=== PATIENT | female | born 1955 | race Caucasian/White ===

== ENCOUNTER 2016-11-03 09:46 | Emergency (ER) ==
[2016-11-03 10:15] VITALS: BMI 36.2
[2016-11-03 10:50] LABS: BASOPHILS % (AUTO) 0.5 % (0.0-3.0); EOSINOPHILS # (AUTO) 0.2 K/ul (0.0-0.7); EOSINOPHILS % (AUTO) 2.6 % (0.0-7.0); HEMATOCRIT 42.4 % (37.0-47.0); HEMOGLOBIN 14.4 g/dl (12.0-16.0); IMMATURE GRANULOCYTE % (AUTO) 0.5 % (0.0-5.0); LYMPHOCYTES # (AUTO) 1.6 K/uL (0.60-3.4); LYMPHOCYTES % (AUTO) 20.3 (10.0-50.0); MEAN CORPUSCULAR HEMOGLOBIN 26.4 pg (27.0-31.0); MEAN CORPUSCULAR VOLUME 77.8 fl (81.0-99.0); MONOCYTES # (AUTO) 0.5 K/uL (0.4-2.0); MONOCYTES % (AUTO) 6.1 (0-10); NEUTROPHILS # (AUTO) 5.4 K/ul (2.0-6.9); PLATELET COUNT 142 10^3/uL (140-440); RED BLOOD COUNT 5.45 10^6/ul (4.20-5.40); WHITE BLOOD COUNT 7.73 K/ul (4.6-10.2)
--- NOTE | 2016-11-03 10:57 | CT ---
EXAM: CT right knee without contrast HISTORY: Diabetic with sudden [id number] pain reduced range of motion COMPARISON: None TECHNIQUE: CT right knee performed without contrast. Coronal and sagittal reformatted images obtai gabriella. FINDINGS: No fracture or dislocation. No cortical destruction to suggest osteomyelitis. Small trico mpartmental osteophytes. Mild narrowing patellofemoral compartment. Moderate narrowing patellofemor al compartment laterally. Mild patellar tendon enthesopathy. Small joint effusion. There is fluid a nd inflammation in the subcutaneous tissues anteriorly. A few foci of increased attenuation in this region may represent blood product. Questionable area of focal developing fluid collection measuri ng 2.1 x 1.4 cm image 42 sagittal. No soft tissue gas. Chondrocalcinosis medial compartment. Ather osclerosis IMPRESSION: 1. No fracture or dislocation. No cortical destruction to suggest osteomyelitis. 2. Fluid and stranding in the subcutaneous tissues anteriorly with possible areas of blood product. Findings may represent cellulitis and/or contusion. Clinical correlation is recommended. Additio rene, there is a possible developing 2.1 cm fluid collection in this region that could represent de veloping abscess or hematoma, poorly evaluated without contrast 3. Small joint effusion. 4. Tricompartmental osteoarthritis, moderate patellofemoral compartment. Chondrocalcinosis.
--- NOTE | 2016-11-03 11:02 | CT ---
EXAM: CT right foot without intravenous contrast 11/03/2016. Sagittal and coronal reformatted imag es obtained. HISTORY: Charcoal arthropathy. Chronic ulceration COMPARISON: None. FINDINGS: Destructive arthropathy is present within the midfoot. There is a reported clinical hist ory of Charcot arthropathy. There is increased bone density with destruction of the articular carti rachel. Multifocal bony deformity with areas of loose body. Multifocal joint subluxation. These fin dings are consistent with Charcot arthropathy. Edematous appearance is present throughout the mid foot. Fluid within the midfoot could be due to j oint effusion. Septic joint not excluded. There is induration of the soft tissues along the undersurface of the foot. This has likely due to extensive edema. No definitive drainable abscess identified. This process extends from this skin s urface superiorly to the undersurface of the cuboid. This can be seen on axial series image 78 and sagittal series image 25. This could represent cellulitis. Infectious process with associated oste omyelitis is not excluded. IMPRESSION: 1. 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 2. The destructive findings of Charcot arthropathy could obscure and mimic the findings of osteomyel itis. Osteomyelitis cannot be excluded on the current study. Fluid extends throughout the midfoot likely due to joint effusion. Septic joint also not excluded. 3. Induration of the soft tissues along the surface of the foot most severe inferior to the cuboid. No definitive drainable abscess. Further evaluation should be obtained as clinically indicated.
[2016-11-03 11:09] LABS: ALBUMIN 3.8 g/dL (3.4-5.0); ALBUMIN/GLOBULIN RATIO 1.12; ANION GAP 14.1; BILIRUBIN,TOTAL 0.97 mg/dL (0.00-1.20); BUN/CREATININE RATIO 16.84; CALCIUM 9.3 mg/dL (8.2-10.2); CREATININE 0.95 mg/dL (0.60-1.30); POTASSIUM 4.1 mmol/L (3.5-5.10); TOTAL PROTEIN 7.2 g/dL (6.4-8.2)
[2016-11-03 13:05] VITALS: BP 143/79; TEMP 97.1
[2016-11-03] MEDS ORDERED: ROCEPHIN 2 GM in SODIUM CHLORIDE 100 ML IV STA (13:11)
--- NOTE | 2016-11-03 13:16 | ED.PDOC ---
General ED Provider: Dr. ARNEL WILKINS Chief Complaint: Knee Pain/Injury Stated Complaint: foot, and knee pain right sided Time Seen by Physician: 10:00 (PMD SPOKE AND SAW PT IN THE ED ) Mode of Arrival: Walk-In Information Source: Patient Exam Limitations: No limitations Primary Care Provider: SARA ROSS Nursing and Triage Documentation Reviewed and Agree: Yes Musculoskeletal Complaint Exam - Ankle/Foot Complaint/Exam Location of Injury: Reports: Right, Foot Mechanism of Injury: Reports: No known trauma (HISTORY OF CHARCOT ARTHROPATHY) Onset/Duration: CHRONIC ACUTELY WORSE SEE PHOTOS Symptoms Are: Reports: Still present Onset of Pain: Reports: Immediate Initial Severity: Moderate Current Severity: Moderate Character: Reports: Aching Alleviating: Reports: Rest, Position Aggravating: Reports: Movement, Weight bearing Able to Bear Weight: Yes Associated Signs and Symptoms: Reports: Swelling, Redness (SEE PHOTOS) Review of Systems - Review Of Systems Constitutional: Reports: No symptoms Eyes: Reports: No symptoms Ears, Nose, Mouth, Throat: Reports: No symptoms Respiratory: Reports: No symptoms Cardiac: Reports: No symptoms GI: Reports: No symptoms : Reports: No symptoms Musculoskeletal: Reports: Joint pain (KNEE PAIN FOOT PAIN) Skin: Reports: No symptoms Neurological: Reports: No symptoms Endocrine: Reports: No symptoms Hematologic/Lymphatic: Reports: No symptoms All Other Systems: Reviewed and Negative Past Medical History - Past Medical History Previously Healthy: No Endocrine: Reports: DM 2, Dyslipidemia Cardiovascular: Reports: Hypertension Respiratory: Reports: None Hematological: Reports: None Gastrointestinal: Reports: None Genitourinary: Reports: None Neuro/Psych: Reports: None Musculoskeletal: Reports: None Cancer: Reports: None Last Menstrual Period: N/A - Surgical History General Surgical History: Reports: Unknown - Family History Family History: Reports: Unknown - Social History Smoking Status: Former smoker Hx Substance Use: No Alcohol Screening: None - Immunizations Tetanus Shot up to Date: Yes Physical Exam - Physical Exam Appearance: Well-appearing, No pain distress, Well-nourished Eyes: MARIA L, EOMI, Conjunctiva clear ENT: Ears normal, Nose normal, Oropharynx normal Respiratory: Airway patent, Breath sounds clear, Breath sounds equal, Respirations nonlabored Cardiovascular: RRR, Pulses normal, No rub, No murmur GI/: Soft, Nontender, No masses, Bowel sounds normal, No Organomegaly Musculoskeletal: Normal strength, No edema, No calf tenderness, Limited ROM ( RIGHT FOOT SEE SUBMITTED PHOTOS, RIGHT KNEE TENDER AND SOWELLEN ) Skin: Warm, Dry, Normal color Neurological: Sensation intact, Motor intact, Reflexes intact, Cranial nerves intact, Alert, Oriented Psychiatric: Affect appropriate, Mood appropriate Physician Notification - Case Discussed Physician Notified: SAYDA Time of Notification: 13:18 (TRANSFER NOW) Critical Care Note - Critical Care Note Total Time (mins): 0 Course - Course Hematology/Chemistry: 11/03/16 10:47 11/03/16 10:47 Orders, Labs, Meds: Lab Review 11/03/16 10:47 WBC 7.73 RBC 5.45 H Hgb 14.4 Hct 42.4 MCV 77.8 L MCH 26.4 L MCHC 34.0 RDW Coeff of Ferny 13.1 Plt Count 142 Immature Gran % (Auto) 0.5 Neut % (Auto) 70.0 Lymph % (Auto) 20.3 [place] % (Auto) 6.1 Eos % (Auto) 2.6 Baso % (Auto) 0.5 Immature Gran # (Auto) 0.0 Neut # 5.4 Lymph # 1.6 [place] # 0.5 Eos # 0.2 Baso # 0.0 Sodium 136 Potassium 4.1 Chloride 100 Carbon Dioxide 26 Anion Gap 14.1 BUN 16 Creatinine 0.95 Estimated GFR (MDRD) 60.00 BUN/Creatinine Ratio 16.84 Glucose 306 H Lactic Acid 24.1 H Calcium 9.3 Total Bilirubin 0.97 AST 25 ALT 41 Alkaline Phosphatase 102 Total Protein 7.2 Albumin 3.8 Globulin 3.4 Albumin/Globulin Ratio 1.12 Orders Category Date Time Status ED IV/MEDIPORT/POWERPORT .ONCE EMERGENCY 11/03/16 13:11 Ordered BLOOD CULTURE Stat LAB 11/03/16 10:47 Received CBC W/ AUTO DIFF Stat LAB 11/03/16 10:47 Completed COMPREHENSIVE METABOLIC PANEL Stat LAB 11/03/16 10:47 Completed LACTIC ACID Stat LAB 11/03/16 10:47 Completed 0.9 % Sodium Chloride [Saline Flush] MEDS 11/03/16 13:11 Ordered 1 syr IVF PRN PRN Ceftriaxone Sodium [Rocephin] 2 gm MEDS 11/03/16 13:11 Ordered 0.9 % Sodium Chloride [Sodium Chloride] [address] FOOT RIGHT WITHOUT CONTRAST Stat RADS 11/03/16 10:[address] KNEE RIGHT WITHOUT CONTRAST Stat RADS 11/03/16 10:08 Completed Medications Generic Name Dose Route Start Last Admin Trade Name Rayne PRN Reason Stop Dose Admin Ceftriaxone Sodium 2 gm/ 100 mls @ 100 mls/hr 11/03/16 13:11 Sodium Chloride IV 11/03/16 14:10 ONCE STA Sodium Chloride 1 syr 11/03/16 13:11 Saline Flush IVF PRN PRN To flush IV Vital Signs: Temp Pulse Resp BP Pulse Ox 11/03/16 13:04 97.1 F L 71 16 143/79 H 95 11/03/16 09:46 96.6 F L 71 20 144/83 H 97 Departure - Departure Time of Disposition: 13:17 Disposition: TSF SHORT-TRM HOSP Discharge Problem: Knee pain, Injury of knee Diabetic foot ulcer Qualifiers: Diabetic foot ulcer location: midfoot Diabetes mellitus type: type 2 Instructions: Foot Care for People with Diabetes (ED), Diabetic Foot Ulcers (ED ) Condition: Good Pt referred to PMD for follow-up: Yes (SAW PT IN THE ED ASK FOR TRANSFER TO HIGHER LEVEL ) Allergies/Adverse Reactions: Allergies Penicillins Adverse Reaction (Verified 03/03/13 18:49) Home Medications: Ambulatory Orders Alprazolam [Xanax] 0.5 mg PO BID 03/03/13 Atenolol 50 mg PO DAILY 03/03/13 Docusate Sodium 100 mg PO DAILY 03/03/13 Fenofibrate 54 mg PO DAILY 03/03/13 Furosemide [Lasix Tab] 20 mg PO DAILY 03/03/13 Gabapentin 300 mg PO TID 03/03/13 Insulin Glargine,Hum.rec.anlog [Lantus] 70 mg SQ BID 03/03/13 Insulin Regular, Human [Novolin R] 1 unit SQ AC 03/03/13 Lisinopril [Zestril] 10 mg PO DAILY 03/03/13 Metformin HCl [Fortamet] 500 mg PO BID 03/03/13 Omeprazole [Prilosec] 20 mg PO DAILY 03/03/13 Potassium Chloride [K-Dur] 20 meq PO TID 03/03/13 Sertraline HCl 100 mg PO DAILY 03/03/13 Aspirin [Sonja Chewable] 81 mg PO DAILY 10/21/14 Biotin 500 mg PO BID 10/21/14 Calcium Carbonate [Calcium] 600 mg PO BID 10/21/14 Ferrous Sulfate 325 mg PO DAILY 10/21/14 Fexofenadine HCl [Jess Allergy] 180 mg PO DAILY 10/21/14 [place]-3 Fatty Acids [Fish Oil] 1,000 mg PO BID 10/21/14
[2016-11-03] MEDS ORDERED: ROCEPHIN ONE (14:03)
== END 2016-11-03 14:05 | disposition short-term general hospital (02) ==
LOC: ED 09:46
DX: M25.561 Pain in right knee (principal); E11.621 Type 2 diabetes mellitus with foot ulcer; L97.419 Non-pressure chronic ulcer of right heel and midfoot with unspecified severity; I10 Essential (primary) hypertension; E78.5 Hyperlipidemia, unspecified; Z79.4 Long term (current) use of insulin; Z79.899 Other long term (current) drug therapy
CPT/HCPCS: 36415; 80053; 83605; 85025; 87040; 96365; 99285

== ENCOUNTER 2016-12-25 22:37 | Emergency (ER) ==
[2016-12-25 22:53] VITALS: BP 157/77; TEMP 99; BMI 35.5
--- NOTE | 2016-12-25 23:31 | ED.PDOC ---
General ED Provider: Dr. CARMEN SANCHEZ Chief Complaint: Fever Stated Complaint: Frequency of urination, pressure in lower belly, also coughing. had some fever. Time Seen by Physician: 23:29 Mode of Arrival: Walk-In Information Source: Patient Primary Care Provider: CARMEN SANCHEZ[facility] Nursing and Triage Documentation Reviewed and Agree: Yes Complaint Exam - UTI Female Complaint/Exam Patient Complains of: Reports: Painful urination (pressure like feeling.) Symptoms Are: Still present Timing: Constant Initial Severity: Mild Current Severity: Mild Location of Pain: Reports: Suprapubic Associated Signs and Symptoms: Reports: Fever, Chills. Denies: Flank pain, Dyspareunia, Vaginal discharge Patient Rh Status: Unknown Related History: Reports: Similar episode Related Surgical History: Reports: None CVA Tenderness: No Suprapubic Tenderness: No Differential Diagnoses: Cystitis Review of Systems - Review Of Systems Constitutional: Reports: Fever, Malaise, Weakness Eyes: Reports: No symptoms Ears, Nose, Mouth, Throat: Reports: No symptoms Respiratory: Reports: Cough Cardiac: Reports: No symptoms GI: Reports: No symptoms : Reports: Burning, Dysuria Musculoskeletal: Reports: No symptoms Skin: Reports: No symptoms Neurological: Reports: No symptoms Endocrine: Reports: No symptoms Hematologic/Lymphatic: Reports: No symptoms All Other Systems: Reviewed and Negative Past Medical History - Past Medical History Previously Healthy: No Endocrine: Reports: DM 2, Dyslipidemia Cardiovascular: Reports: Hypertension Respiratory: Reports: None Hematological: Reports: None Gastrointestinal: Reports: None Genitourinary: Reports: None Neuro/Psych: Reports: None Musculoskeletal: Reports: None Cancer: Reports: None Last Menstrual Period: 10 YEARS AGO - Surgical History General Surgical History: Reports: Cholecystectomy, Orthopedic - Family History Family History: Reports: Unknown - Social History Smoking Status: Former smoker Hx Substance Use: No Alcohol Screening: None - Immunizations Tetanus Shot up to Date: (UNKNOWN) Physical Exam - Physical Exam Appearance: Well-appearing, No pain distress, Well-nourished Eyes: MARIA L, EOMI, Conjunctiva clear ENT: Ears normal, Nose normal, Oropharynx normal Respiratory: Airway patent, Breath sounds clear, Breath sounds equal, Respirations nonlabored Cardiovascular: RRR, Pulses normal, No rub, No murmur GI/: Soft, Nontender, No masses, Bowel sounds normal, No Organomegaly Musculoskeletal: Normal strength, ROM intact, No edema, No calf tenderness Skin: Warm, Dry, Normal color Neurological: Sensation intact, Motor intact, Reflexes intact, Cranial nerves intact, Alert, Oriented Psychiatric: Affect appropriate, Mood appropriate Critical Care Note - Critical Care Note Total Time (mins): 0 Course - Course Orders, Labs, Meds: Lab Review 12/25/16 23:30 Urine Color Yellow Urine Clarity Clear Urine pH 7.0 Ur Specific [place] 1.015 Urine Protein Negative Urine Glucose (UA) Negative Urine Ketones Negative Urine Blood Trace-intact Urine Nitrite Negative Urine Bilirubin Negative Urine Urobilinogen 1.0 Ur Leukocyte Esterase 1+ Urine Microscopic RBC 5-10 Urine Microscopic WBC 5-10 Ur Squamous Epith Cells 2-5 Urine Bacteria 1+ Orders Category Date Time Status URINALYSIS C & S IF INDICATED Stat LAB 12/25/16 23:30 Completed URINE CULTURE Routine LAB 12/25/16 23:44 Received Ceftriaxone Sodium [Rocephin] MEDS 12/26/16 00:05 Stat 1 gm IM ONCE STA Lidocaine HCl/Pf [Lidocaine 1 % Amp 5 ml (Sutures)] MEDS 12/26/16 00:05 Stat 2.1 ml IM ONCE STA CXR [CHEST, 2 VIEWS PA & LAT] Stat RADS 12/25/16 23:25 Completed Vital Signs: Temp Pulse Resp BP Pulse Ox 12/25/16 22:37 99 F 75 18 157/77 H 96 Departure - Departure Time of Disposition: 00:07 Disposition: HOME SELF-CARE Discharge Problem: Urinary tract infection Qualifiers: Urinary tract infection type: acute cystitis Hematuria presence: with hematuria Qualifier Code: (N30.01) Acute cystitis with hematuria Instructions: Urinary Tract Infection in Women (ED) Condition: Stable Pt referred to PMD for follow-up: Yes Additional Instructions: Increase hydration Probiotics Take medication with food. Prescriptions: Sulfamethoxazole/Trimethoprim [Bactrim Ds 800/160 mg] 1 tab PO Q12HR #20 tablet Allergies/Adverse Reactions: Allergies Penicillins Adverse Reaction (Verified 12/25/16 22:53) Hives Home Medications: Ambulatory Orders Docusate Sodium 100 mg PO BID 03/03/13 Fenofibrate 54 mg PO DAILY 03/03/13 Furosemide [Lasix Tab] 20 mg PO DAILY 03/03/13 Gabapentin 300 mg PO TID 03/03/13 Insulin Glargine,Hum.rec.anlog [Lantus] 70 mg SQ DAILY 03/03/13 Insulin Regular, Human [Novolin R] 1 unit SQ AC 03/03/13 Lisinopril [Zestril] 10 mg PO DAILY 03/03/13 Metformin HCl [Fortamet] 500 mg PO BID 03/03/13 Omeprazole [Prilosec] 20 mg PO DAILY 03/03/13 Potassium Chloride [K-Dur] 20 meq PO TID 03/03/13 Sertraline HCl 100 mg PO DAILY 03/03/13 Aspirin [Sonja Chewable] 81 mg PO BEDTIME 10/21/14 Biotin 500 mg PO BID 10/21/14 Calcium Carbonate [Calcium] 600 mg PO BID 10/21/14 Ferrous Sulfate 325 mg PO BID 10/21/14 [place]-3 Fatty Acids [Fish Oil] 1,000 mg PO DAILY 10/21/14 Alprazolam [Xanax] 0.5 mg PO BEDTIME 12/25/16 Atenolol 50 mg PO DAILY 12/25/16 Atorvastatin Calcium [Lipitor] 10 mg PO BEDTIME 12/25/16 Cetirizine HCl [Zyrtec] 10 mg PO DAILY 12/25/16 Insulin Glargine,Hum.rec.anlog [Lantus] 75 units SQ BEDTIME 12/25/16 Methenamine/Sodium Salicylate [Cystex Tablet] 2 each PO TID 12/25/16 Sulfamethoxazole/Trimethoprim [Bactrim Ds 800/160 mg] 1 tab PO Q12HR #20 tablet 12/26/16 Disposition Discussed With: Patient, Family
[2016-12-25 23:35] LABS: ADD URINE MICROSCOPIC YES; BILIRUBIN,URINE Negative (NEGATIVE); KETONES,URINE Negative (NEGATIVE); LEUKOCYTE ESTERASE ,URINE 1+ (NEGATIVE); NITRITE,URINE Negative (NEGATIVE); PROTEIN,URINE Negative (NEGATIVE); URINE, BLOOD Trace-intact (NEGATIVE)
[2016-12-25 23:43] LABS: BACTERIA,URINE 1+ (NOT PRESENT)
--- NOTE | 2016-12-25 23:46 | DI ---
EXAM: Chest, two views, 12/25/2016 HISTORY: Cough COMPARISON: 05/11/2015 FINDINGS / IMPRESSION: Cardiomediastinal contours appear within normal limits. Basilar interstitia l opacities may represent atelectasis or pneumonitis. There is no focal pulmonary consolidation. N o pleural effusion or pneumothorax.
[2016-12-26] MEDS ORDERED: LIDOCAINE 1 % AMP 5 ML (SUTURES) IM STA (00:05)
[2016-12-26] MEDS ORDERED: ROCEPHIN IM STA (00:05)
== END 2016-12-26 00:26 | disposition home or self-care (01) ==
LOC: ED 22:37
DX: N30.01 Acute cystitis with hematuria (principal); R05 Cough; Z79.899 Other long term (current) drug therapy
CPT/HCPCS: 81001; 87086; 87186; 96372; 99283

== ENCOUNTER 2017-01-29 10:11 | Outpatient (CLI) | END 2017-01-29 10:12 | disposition home or self-care (01) | LOC: CAR 10:11 | PROVIDERS: ATTEND Emergency Medicine | DX: E11.42 Type 2 diabetes mellitus with diabetic polyneuropathy (principal); I10 Essential (primary) hypertension | CPT/HCPCS: 93005; 93010 ==

== ENCOUNTER 2017-07-08 10:25 | Outpatient (CLI) ==
--- NOTE | 2017-07-09 09:51 | MAMMO ---
EXAM: Bilateral digital screening mammogram (2-D and 3-D) History: Screening Comparison: Bilateral mammogram 06/27/2016 Findings: MLO and CC views of bilateral breasts demonstrate scattered fibroglandular breast parenchy ma. CAD was reviewed by the radiologist. Tomosynthesis was performed. There are no dominant masses , no suspicious microcalcifications and no architectural distortions. Impression: Stable negative mammogram. Recommend followup routine screening mammography in 1 year. BIRADS 1
== END 2017-07-08 10:26 | disposition home or self-care (01) ==
LOC: RAD 10:25
PROVIDERS: ATTEND Emergency Medicine
DX: Z12.31 Encounter for screening mammogram for malignant neoplasm of breast (principal)
CPT/HCPCS: 77067

== ENCOUNTER 2017-10-28 06:09 | Outpatient (CLI) | END 2017-10-28 06:10 | disposition home or self-care (01) | LOC: CAR 06:09 | PROVIDERS: ATTEND Emergency Medicine | DX: R06.02 Shortness of breath (principal); I10 Essential (primary) hypertension; E11.42 Type 2 diabetes mellitus with diabetic polyneuropathy; E78.5 Hyperlipidemia, unspecified ==

== ENCOUNTER 2017-10-29 06:45 | Outpatient (CLI) ==
[2017-10-29] MEDS ORDERED: ATROPINE SULFATE PFS ONE (07:24)
[2017-10-29] MEDS ORDERED: DOBUTAMINE 250 ML IV ONE (07:24)
--- NOTE | 2017-10-29 09:40 | NM ---
EXAM: Myocardial perfusion imaging HISTORY: Shortness of breath COMPARISON: Myocardial imaging on 04/21/2015 was normal. TECHNIQUE: Patient was injected 3.6 mCi of thallium 201 chloride intravenously while at rest. SPEC T imaging of the heart was acquired. Patient was stressed using dobutamine protocol and injected 25. 6 mCi of Tc99m Sestamibi intravenously. Another SPECT imaging of the heart was performed. Gated car diac study was acquired. FINDINGS: Post stress images show normal left ventricular cavity size. There is a focal area of redu ryan perfusion involving mid anterior wall. Another focal area of diminished activity is noted involv ing inferior apical segment of the left ventricle. These areas show reperfusion on delayed imaging c onsistent with reversible ischemia. No definite fixed defect is visualized. Left ventricular ejecti on fraction is 62%. No definite wall motion abnormalities detected. IMPRESSION: 1. SPECT myocardial imaging demonstrates Dobutamine induced reversible ischemia involving the mid-an terior wall and inferior apical segment of the left ventricle. 2. Normal cardiac systolic function and normal wall motion.
--- NOTE | 2017-10-29 13:00 | DOBSTECHST ---
Ordering Physician: DR. CARMEN SANCHEZ Date of Test: 10/29/17 Reason for Examination: HTN, DYSLIPIDEMIA, DM2, SURGICAL CLEARANCE Current Medications: LANTUS, LISINOPRIL, ATENOLOL, METFORMIN, GABAPENTIN, FENOFIBRATE, FUROSEMIDE, SERTRALINE, NOVOLIN, XANAX, ATORVASTATIN, Height: 71" Weight: 265 LBS Target Heart Rate: 136/160 S-T Segment Stage Time HR BPM BP mmhg Rhythm +/- Elevation Depression Comments/ Symptoms Control Sitting 56 150/84 SR X NONE Dobutamine 250mg/D5W 5cmg/KG/mn 10cmg/KG/mn 3" 64 148/82 SR X NONE 15cmg/KG/mn 2" 64 160/90 SR X NONE 20cmg/KG/mn 2" 64 SR X NONE 25cmg/KG/mn 2" 62 180/88 SR X NONE 30cmg/KG/mn 2" 74 SR X .25 ATROPINE 35cmg/KG/mn 2" 76 196/80 SR X 40cmg/KG/mn :53 76 SR X Time: 4" HR B/P Time: 8" HR B/P Time: HR B/P Recovery 68 176/82 Recovery 64 Recovery Total Time: 13:53 Maximum Heart Rate Reached: 76 __ Interpretation: 96% OXYGEN SATURATION WITH DOBUTAMINE INFUSION 1. NON DIAGNOSTIC PATIENT DID NOT REACH TARGET HEART RATE 2. NO CHEST PAIN OR CHEST DISCOMFORT 3. NORMAL LEFT VENTRICULAR CONTRACTILITY--RESTING AND WITH DOBUTAMINE INFUSION 4. MYOCARDIAL THALLIUM SCAN TO FOLLOW MTDD
--- NOTE | 2017-10-30 10:25 | ECHOSTRESS ---
Date of Exam: 10/29/17 Ordering Physician: DR. CARMEN SANCHEZ Reason for Echo: SURGICAL CLEARANCE, DOBUTAMINE STRESS--NO DIAGNOSTIC M-Mode Normal Adult Results LV Dimensions Normal Adult Results AoV Opening excursions >1.6 LVEDD-base- 3.5-5.8 Ao root dimensions 2.0-3.7 LVESD-base- 3.1-4.6 L. Atrium dimensions 1.9-3.8 Post. Wall thickness 0.8-1.1 IV septum (thickness) 0.7-1.2 Post. Wall excursion 0.72-1.3 Septal motion Systolic motion R. Ventricular cavity 1.5-2.0 LVEF 60% Paradoxical septal wall motion 2-D: NORMAL LEFT VENTRICULAR CONTRACTILITY--RESTING AND WITH DOBUTAMINE INFUSION M-MODE: MV: AV: TV: PV: CHAMBER SIZE: WALL MOTION: NORMAL LEFT VENTRICULAR CONTRACTILITY--RESTING AND WITH DOBUTAMINE INFUSION PERICARDIUM: INTERPRETATION: 1. NORMAL LEFT VENTRICULAR CONTRACTILITY--RESTING AND WITH DOBUTAMINE INFUSION MTDD
== END 2017-10-29 06:46 | disposition home or self-care (01) ==
LOC: CAR 06:45
PROVIDERS: ATTEND Emergency Medicine
DX: R06.02 Shortness of breath (principal); E11.42 Type 2 diabetes mellitus with diabetic polyneuropathy; I10 Essential (primary) hypertension; E78.5 Hyperlipidemia, unspecified; Z01.810 Encounter for preprocedural cardiovascular examination; M86.672 Other chronic osteomyelitis, left ankle and foot